=== PATIENT | female | born 1975 | race Hispanic/Latino ===

== ENCOUNTER 2024-01-07 16:21 | Emergency (ER) | payer BC ==
[2024-01-07] MEDS ORDERED: Morphine 4 MG/ML VIAL ONE (17:19)
[2024-01-07] MEDS ORDERED: Ondansetron PF 4 MG/2 ML Vial ONE (17:19)
[2024-01-07 17:51] LABS: #Basophils 0.02 10x3/uL (0.0-0.2); #Eosinphils 0.02 10x3/uL (0.0-0.5); #Monocytes 0.24 10x3/uL (0.0-1.1); #Neutrophils 7.94 10x3/uL (1.5-8.4); %Basophils 0.2 % (0.0-2.0); %Eosinophils 0.2 % (0.0-6.0); %Lymphocytes 13.4 % (18.0-47.0); %Monocytes 2.5 % (0.0-10.0); %Neutrophils 83.5 % (40.0-75.0); Hemoglobin 12.4 g/dL (12.0-15.5); Mean Corpuscular HGB CONC 33.5 g/dL (32.0-36.0); Mean Corpuscular Hemoglobin 29.9 pg (27.0-33.0); Mean Corpuscular Volume 89.2 fL (81.6-98.3); Mean Platelet Volume 12.1 fL (7.4-10.4); Platelet Count 252 10x3/uL (150-450); RBC Distribution Width 13.7 % (11.5-14.5); Red Blood Cell (RBC) Count 4.15 10x6/uL (3.90-5.03); White Blood Cell (WBC) Count 9.5 10x3/uL (3.5-10.5)
[2024-01-07 18:06] LABS: ALT (SGPT) 30 U/L (8-55); AST (SGOT) 18 U/L (5-34); Alkaline Phosphatase 108 U/L (40-110); Anion Gap 12 mmol/L (10-20); BUN (Urea Nitrogen) 15 mg/dL (7.0-18.7); Bilirubin, Total 0.5 mg/dL (0.2-1.2); Calc. Creatinine Clearance 0 mL/min (70-130); Calcium 9.3 mg/dL (7.8-10.44); Carbon Dioxide 25 mmol/L (22-29); Chloride 107 mmol/L (98-107); Estimated GFR 92; Globulin 3.4 g/dL (2.4-3.5); Glucose 121 mg/dL (70-105); Lipase 20 U/L (8-78); Potassium 4.2 mmol/L (3.5-5.1); Protein, Total 7.4 g/dL (6.0-8.3); Sodium 140 mmol/L (136-145)
[2024-01-07 19:43] LABS: Bilirubin Neg (Negative); Blood, Urine 150 (Negative); Clarity Cloudy (Clear); Glucose, Urine (Dipstick) Normal (Negative); Ketone, Urine Negative (Negative); Leukocyte 500 (Negative); Nitrite Negative (Negative); Protein, Urine (Dipstick) 30 mg/dl (Neg-Trace); Urobilinogen Normal mg/dL (Less than 2)
[2024-01-07 20:00] LABS: Bacteria/HPF 2+ HPF (None Seen); CAUTI Indications for Culture Pelvic or flank pain; Mucous/LPF 1+ LPF (<2+); WBC/HPF 21-50 HPF (0-3)
[2024-01-07 20:01] LABS: Urine Culture Reflex Yes Yes
== END 2024-01-07 20:34 | disposition home or self-care (01) ==
LOC: CSHERS 16:21
DX: N83.209 Unspecified ovarian cyst, unspecified side (principal); N39.0 Urinary tract infection, site not specified
CPT/HCPCS: 76856; 80053; 81001; 83690; 85025; 87086; 96361; 96374; 96375; J2270; J2405